=== PATIENT | male | born 1935 | race Caucasian/White ===

== ENCOUNTER → 2016-11-15 | Outpatient (CLI) | payer OTHER, SELFPAY ==
[~2016-11-15] MED LIST: APAP500 PO; ASPIR 8181 MG PO; ASPIRIN EC81 M1 PO; BISACODYL SUPP10 MG RECTAL; CLOPIDOGREL75 MG PO; CRESTOR10 MG PO; CRESTOR20 MG PO; FISH OIL 1,001000 M1 PO; GEMFIBROZIL 60600 MG PO; LISINOPRIL20 MG PO; LISINOPRIL5 MG PO; LOPRESSOR 50 MG50 M1 PO; MACROBID 100 M100 M1 PO; MAG-AL PLUS XS30 ML PO; METFORMIN HCL500 MG; METFORMIN HCL500 MG PO; MILK OF MA2400 MG/10 PO; NAPROSYN250 MG PO; NITROGLYCERIN0.4 MG SUBLING; NORCO 5-325 TA1 EACH PO; PLAVIX 75 MG TA75 M1 PO; PREDNISONE 10 M10 MG PO; PREDNISONE 5 MG5 M1 PO; SENNA LAXATIVE8.6 MG PO; TEMAZEPAM15 MG PO; TOPROL XL100 MG PO; TOPROL XL25 MG PO; TOPROL XL50 MG PO; TYLENOL325 MG PO; VITAMIN B-12500 MCG PO; VITAMIN B12 SUBLING; WELLBUTRIN SR150 MG PO; ZPAK PO
--- NOTE | ~2016-11-15 | 2DMMODE ---
[facility] [place] [address] 2 D/M-MODE ECHOCARDIOGRAM Name: ОЛЕГLUCY BREWER Room #: [facility] [id number] Admission: 11/15/16 Attend Phys: Lawrence Mora, Discharge: Date of : 31 Date of Service: 11/15/16 1817 Report #: [id number] THIS REPORT FOR: //name// APPROVED REPORT Study performed: 11/15/2016 13:55:33 EXAM: Comprehensive 2D, Doppler, and color-flow Echocardiogram Patient Location: Out-Patient Status: routine Other Information Study Quality: Adequate Indications Hypertension/HDD 2D Dimensions RVDd: 41.46 mm LVEF(%): 59.29 (>50%) IVSd: 9.50 (7-11mm) LVOT Diam: 18.69 (18-24mm) LVDd: 61.18 mm PWd: 10.84 (7-11mm) LVDs: 41.55 (25-40mm) Aortic Root: 29.06 mm Nesbitt's LVEF: 59.29 % Volumes Left Atrial Volume (Systole) Single Plane 4CH: 40.95 mL Single Plane 2CH: 60.94 mL LA ESV Index: 28.00 mL/m2 Aortic Valve AoV Peak Den.: 1.57 m/s AO Peak Gr.: 9.90 mmHg LVOT Max P.99 mmHg LVOT Max V: 0.86 m/s TANYA Vmax: 1.50 cm2 Mitral Valve E/A Ratio: 0.6 MV Decel. Time: 166.73 ms MV E Max Den.: 0.48 m/s MV A Den.: 0.77 m/s MV PHT: 48.35 ms IVRT: 101.50 ms [facility] [address] [place] [address] 2 D/M-MODE ECHOCARDIOGRAM [facility] #: [facility]#: [id number] Admission: 11/15/16 Attend Phys: Lawrence Mora, Discharge: Date of : 31 Date of Service: 11/15/16 1817 Report #: [id number] Pulmonary Valve PV Peak Den.: 1.06 m/s PV Peak Gr.: 4.54 mmHg Pulmonary Vein P Vein S: 0.50 m/s P Vein A: 0.17 m/s P Vein D: 0.30 m/s P Vein A Dur.: 115.3 msec P Vein S/D Ratio: 1.67 Tricuspid Valve TR Peak Den.: 2.17 m/s TR Peak Gr.: 18.88 mmHg Left Ventricle Left ventricle is at the upper limits of normal. There is normal LV segmental wall motion. There is normal left ventricular wall thickness. The left ventricular systolic function is normal. The left ventricular ejection fraction is within the normal range. LVEF is 50-55%. Grade I - abnormal relaxation pattern. Right Ventricle The right ventricle is normal size. The right ventricular systolic function is normal. Atria The left atrium size is normal. The right atrium size is normal. Aortic Valve Aortic valve is calcified, trileaflet. No aortic regurgitation. There is no aortic valvular stenosis. Mitral Valve The mitral valve is normal in structure. No mitral regurgitation. No evidence of mitral valve stenosis. Tricuspid Valve The tricuspid valve is normal in structure. There is trace tricuspid regurgitation. There is no pulmonary hypertension. IVC is not well visualized. Pulmonic Valve The pulmonary valve is normal in structure. Trace pulmonic regurgitation. Great Vessels [facility] [address] [place] [address] 2 D/M-MODE ECHOCARDIOGRAM [facility]: [facility] Room #: [facility] [id number] Admission: 11/15/16 Attend Phys: Lawrence Mora, Discharge: Date of : 31 Date of Service: 11/15/16 1817 Report #: [id number] The aortic root is normal in size. IVC is not well visualized. Pericardium There is no pericardial effusion. <Conclusion> The left ventricular ejection fraction is within the normal range. There is normal LV segmental wall motion. LVEF is 50-55%. Grade I diastolic dysfunction Aortic valve is calcified, trileaflet. No aortic valvular stenosis or insufficiency. The mitral valve is normal in structure. No mitral regurgitation. There is no pericardial effusion. <ELECTRONICALLY SIGNED> By: Lawrence Mora MD, [facility] 11/15/161816 16 16 Lawrence Mora MD, [facility] /INF
== END ==
LOC: CV 09:51
DX: I65.23 Occlusion and stenosis of bilateral carotid arteries (principal); I10 Essential (primary) hypertension

== ENCOUNTER 2017-12-07 13:52 | Emergency (ER) | payer OTHER, SELFPAY ==
[~2017-12-07] VITALS: Ht 170.2 cm; Wt 81.7 kg
[2017-12-07] MEDS ORDERED: TOPROL XL25 MG PO (14:21)
[2017-12-07 14:36] LABS: URINE BILIRUBIN NEGATIVE (Negative); URINE BLOOD NEGATIVE (Negative); URINE COLOR YELLOW; URINE GLUCOSE-RANDOM* NEGATIVE (Negative); URINE KETONES NEGATIVE (Negative); URINE NITRITE-REFLEX NEGATIVE (Negative); URINE PROTEIN (DIPSTICK) 2+ (Negative); URINE SPECIFIC GRAVITY <= 1.005 (1.005-1.035)
[2017-12-07 14:37] LABS: URINE CLARITY CLOUDY; URINE LEUKOCYTES-REFLEX 1+ (Negative)
[2017-12-07 14:46] LABS: BACTERIA-REFLEX >30 Many /HPF (None Seen); CASTS None Seen /LPF (None Seen); SQUAMOUS None Seen /LPF (0-3); URINE RBC None Seen /HPF (0-2); URINE WBC-REFLEX 0-5 Rare /HPF (0-5)
[2017-12-07 14:48] LABS: TRIPLE PHOSPHATE CRYSTALS >10 Many /LPF (None Seen)
[2017-12-07 15:29] LABS: ABSOLUTE NEUTROPHILS 2.5 thou/uL (1.4-8.2); BASOPHILS 0.4 % (0.0-2.0); EOSINOPHILS 2.1 % (0.0-3.0); HEMATOCRIT 37.7 % (42.0-52.0); HEMOGLOBIN 12.4 gm/dL (14.0-18.0); LYMPHOCYTES 6.8 % (24.0-44.0); MCH 31.8 pg (26.0-34.0); MCHC 32.8 g/dL (28.0-37.0); MCV 97.1 fL (80.0-100.0); MONOCYTES 7.3 % (1.0-8.0); PLATELET COUNT 103 thou/uL (150-400); POLYS 83.4 % (36.0-66.0); RBC 3.88 mil/uL (4.50-6.00); RDW 15.4 % (10.5-14.5)
[2017-12-07 15:37] LABS: CALCIUM 8.8 mg/dL (8.5-10.1); CREATININE 1.5 mg/dL (0.7-1.3); POTASSIUM 3.9 mmol/L (3.5-5.1)
[2017-12-07] MEDS ORDERED: KEFLEX500 M1 PO (16:14)
[2017-12-07] MEDS ORDERED: TRAMADOL 50 MG50 MG PO (16:53)
== END 2017-12-07 17:01 | disposition home or self-care (01) ==
LOC: ER 13:52
PROVIDERS: Physician Assistant
DX: N39.0 Urinary tract infection, site not specified (principal); I25.2 Old myocardial infarction; I63.9 Cerebral infarction, unspecified; I10 Essential (primary) hypertension; E11.9 Type 2 diabetes mellitus without complications; Z85.51 Personal history of malignant neoplasm of bladder; Z85.05 Personal history of malignant neoplasm of liver; Z90.6 Acquired absence of other parts of urinary tract; Z88.5 Allergy status to narcotic agent; Z88.0 Allergy status to penicillin; Z88.7 Allergy status to serum and vaccine

== ENCOUNTER 2018-07-04 18:36 | Emergency (ER) | payer OTHER ==
[~2018-07-04] VITALS: Ht 170.2 cm; Wt 81.7 kg
[~2018-07-04 18:36] MED LIST changes: +KEFLEX500 M1 PO; +TRAMADOL 50 MG50 MG PO; +TRAZODONE HCL50 MG PO
[2018-07-04 19:01] LABS: ABSOLUTE NEUTROPHILS 4.1 thou/uL (1.4-8.2); BASOPHILS 0.3 % (0.0-2.0); EOSINOPHILS 1.6 % (0.0-3.0); HEMATOCRIT 37.4 % (42.0-52.0); HEMOGLOBIN 12.4 gm/dL (14.0-18.0); LYMPHOCYTES 9.7 % (24.0-44.0); MCH 32.4 pg (26.0-34.0); MCHC 33.3 g/dL (28.0-37.0); MCV 97.3 fL (80.0-100.0); MONOCYTES 6.7 % (1.0-8.0); PLATELET COUNT 122 thou/uL (150-400); POLYS 81.7 % (36.0-66.0); RBC 3.84 mil/uL (4.50-6.00); RDW 14.8 % (10.5-14.5)
[2018-07-04 19:12] LABS: CALCIUM 8.7 mg/dL (8.5-10.1); CREATININE 1.6 mg/dL (0.7-1.3); POTASSIUM 4.3 mmol/L (3.5-5.1)
[2018-07-04 19:14] LABS: APTT 25.2 Seconds (24.5-32.8); PROTIME 10.7 Seconds (9.3-11.4)
[2018-07-04 19:16] LABS: ALBUMIN 3.4 g/dL (3.4-5.0); TOTAL BILIRUBIN 0.3 mg/dL (<0.1-1.0); TOTAL PROTEIN 7.3 g/dL (6.4-8.2)
[2018-07-04 19:19] LABS: POC CA IONIZED 4.8 mg/dL (4.5-5.3); POC CREATININE 1.7 mg/dL (0.6-1.3); POC HEMOGLOBIN 12.2 g/dL (14.0-18.0); POC POTASSIUM 4.3 mmol/L (3.5-5.1)
[2018-07-04 20:23] LABS: URINE BILIRUBIN NEGATIVE (Negative); URINE BLOOD 1+ (Negative); URINE CLARITY SL CLOUDY; URINE COLOR YELLOW; URINE GLUCOSE-RANDOM* NEGATIVE (Negative); URINE KETONES NEGATIVE (Negative); URINE LEUKOCYTES 3+ (Negative); URINE NITRITE POSITIVE (Negative); URINE PROTEIN (DIPSTICK) NEGATIVE (Negative); URINE SPECIFIC GRAVITY 1.015 (1.005-1.035); URINE UROBILINOGEN 0.2 E.U./dl (0.2-1.0)
[2018-07-04 20:26] LABS: SQUAMOUS 0-3 Few /LPF (0-3)
[2018-07-04 20:27] LABS: BACTERIA >30 Many /HPF (None Seen); CASTS None Seen /LPF (None Seen); TRIPLE PHOSPHATE CRYSTALS 0-3 Few /LPF (None Seen); URINE RBC 0-2 Rare /HPF (0-2); URINE WBC >25 Many /HPF (0-5)
[2018-07-04 20:29] LABS: RENAL EPITHELIAL CELLS 0-3 Few /LPF (None Seen)
[2018-07-04 20:30] LABS: MUCUS 4-6 Moderate strn/LPF (None Seen); YEAST Present (None Seen)
[2018-07-04 21:55] VITALS: BP 148/64
[2018-07-04] MEDS ORDERED: KEFLEX500 M1 PO (21:58)
--- NOTE | 2018-07-06 08:28 | EKG ---
[address] [address] [place] [address] ELECTROCARDIOGRAM REPORT Name: LUCY DENNEY BREWER Room #: DEP Lui#: [id number] Admission: 07/04/18 Attend Phys: Discharge: 07/04/18 Date of : 31 Report #: [id number] THIS REPORT FOR: //name// [facility] ED Test Date: 2018-07-04 Test Time: 19:40:19 Pat Name: LUCY DENNEY Department: Room: Gender: Charting Clerk: stoled : 1935 Requested By: Iman Simons Order Number: [id number] MD: Lawrence Mora Measurements Intervals [place] Rate: 62 P: -19 AL: 236 QRS: -12 QRSD: 151 T: -27 QT: 437 QTc: 444 Interpretive Statements Sinus rhythm Prolonged AL interval Right bundle branch block Inferior infarct, age indeterminate Compared to ECG 02/08/2018 15:15:32 Atrial premature complex(es) no longer present Electronically Signed On 07-06-2018 8:28:10 [employer] by Lawrence Mora [email or web address] <ELECTRONICALLY SIGNED> By: Lawrence Mora MD, [facility] 07/06/18 0828 39 39 Lawrence Mora MD, [facility] /EPI
== END 2018-07-04 22:06 | disposition home or self-care (01) ==
LOC: ER 18:36
PROVIDERS: Student in an Organized Health Care Education/Training Program
DX: N39.0 Urinary tract infection, site not specified (principal); I10 Essential (primary) hypertension; E11.9 Type 2 diabetes mellitus without complications; Z88.0 Allergy status to penicillin; Z88.5 Allergy status to narcotic agent; Z88.7 Allergy status to serum and vaccine; Z85.51 Personal history of malignant neoplasm of bladder; Z96.651 Presence of right artificial knee joint

== ENCOUNTER → 2019-07-13 | Outpatient (CLI) | payer OTHER | LOC: SJCVC 16:05 | DX: I21.19 ST elevation (STEMI) myocardial infarction involving other coronary artery of inferior wall (principal); I49.3 Ventricular premature depolarization; I45.10 Unspecified right bundle-branch block; I11.9 Hypertensive heart disease without heart failure; R94.31 Abnormal electrocardiogram [ECG] [EKG]; I25.10 Atherosclerotic heart disease of native coronary artery without angina pectoris; I65.23 Occlusion and stenosis of bilateral carotid arteries; I25.5 Ischemic cardiomyopathy; C22.0 Liver cell carcinoma; E78.5 Hyperlipidemia, unspecified; I71.4 Abdominal aortic aneurysm, without rupture; Z95.1 Presence of aortocoronary bypass graft; E11.9 Type 2 diabetes mellitus without complications; Z96.659 Presence of unspecified artificial knee joint; Z79.899 Other long term (current) drug therapy; Z87.891 Personal history of nicotine dependence ==

== ENCOUNTER → 2020-01-25 | Outpatient (CLI) | payer OTHER | LOC: SJCVCIMAG 07:14 | PROVIDERS: ATTEND Internal Medicine | DX: I65.23 Occlusion and stenosis of bilateral carotid arteries (principal); I08.0 Rheumatic disorders of both mitral and aortic valves; I11.9 Hypertensive heart disease without heart failure; I45.10 Unspecified right bundle-branch block; R94.31 Abnormal electrocardiogram [ECG] [EKG]; E11.9 Type 2 diabetes mellitus without complications; E78.5 Hyperlipidemia, unspecified; I71.4 Abdominal aortic aneurysm, without rupture; I25.810 Atherosclerosis of coronary artery bypass graft(s) without angina pectoris; C22.0 Liver cell carcinoma; Z95.1 Presence of aortocoronary bypass graft; Z79.82 Long term (current) use of aspirin; Z79.899 Other long term (current) drug therapy; Z87.891 Personal history of nicotine dependence ==

== ENCOUNTER → 2020-07-28 | Outpatient (CLI) | payer OTHER | LOC: SJCVC 09:45 | PROVIDERS: ATTEND Internal Medicine | DX: R94.31 Abnormal electrocardiogram [ECG] [EKG] (principal); I45.10 Unspecified right bundle-branch block; I11.9 Hypertensive heart disease without heart failure; I25.10 Atherosclerotic heart disease of native coronary artery without angina pectoris; I25.5 Ischemic cardiomyopathy; I65.23 Occlusion and stenosis of bilateral carotid arteries; E78.5 Hyperlipidemia, unspecified; I71.4 Abdominal aortic aneurysm, without rupture; E11.9 Type 2 diabetes mellitus without complications; Z95.1 Presence of aortocoronary bypass graft; Z92.3 Personal history of irradiation; Z85.89 Personal history of malignant neoplasm of other organs and systems; Z79.82 Long term (current) use of aspirin; Z79.899 Other long term (current) drug therapy; Z87.891 Personal history of nicotine dependence; Z88.5 Allergy status to narcotic agent; Z88.0 Allergy status to penicillin ==

== ENCOUNTER → 2021-01-11 | Outpatient (CLI) | payer OTHER | LOC: SJCVCIMAG 07:29 | PROVIDERS: ATTEND Internal Medicine | DX: I44.0 Atrioventricular block, first degree (principal); I45.10 Unspecified right bundle-branch block; I25.10 Atherosclerotic heart disease of native coronary artery without angina pectoris; I25.5 Ischemic cardiomyopathy; I65.23 Occlusion and stenosis of bilateral carotid arteries; I10 Essential (primary) hypertension; E78.5 Hyperlipidemia, unspecified; I71.4 Abdominal aortic aneurysm, without rupture; C22.0 Liver cell carcinoma; E11.9 Type 2 diabetes mellitus without complications; Z95.1 Presence of aortocoronary bypass graft; Z79.82 Long term (current) use of aspirin; Z79.899 Other long term (current) drug therapy; Z87.891 Personal history of nicotine dependence; Z88.5 Allergy status to narcotic agent; Z88.0 Allergy status to penicillin; Z88.8 Allergy status to other drugs, medicaments and biological substances ==

== ENCOUNTER → 2021-07-17 | Outpatient (CLI) | payer OTHER | LOC: SJCVC 13:31 | PROVIDERS: ATTEND Internal Medicine | DX: I45.19 Other right bundle-branch block (principal); R94.31 Abnormal electrocardiogram [ECG] [EKG]; I48.91 Unspecified atrial fibrillation; I25.10 Atherosclerotic heart disease of native coronary artery without angina pectoris; I25.5 Ischemic cardiomyopathy; I65.23 Occlusion and stenosis of bilateral carotid arteries; I10 Essential (primary) hypertension; E78.5 Hyperlipidemia, unspecified; I71.4 Abdominal aortic aneurysm, without rupture; C22.0 Liver cell carcinoma; E11.9 Type 2 diabetes mellitus without complications; Z95.1 Presence of aortocoronary bypass graft; Z87.891 Personal history of nicotine dependence; Z79.82 Long term (current) use of aspirin; Z79.899 Other long term (current) drug therapy ==